=== PATIENT | male | born 1995 ===

== ENCOUNTER 2020-05-22 20:50 | Outpatient (REF) | payer MEDICAID, SELFPAY ==
[2020-05-24 13:50] LABS: COVID-19 RT-PCR UVMMC Result Negative (Negative)
== END 2020-05-22 21:10 ==
LOC: NCHCN 20:50
PROVIDERS: Visit Provider Family Medicine
DX: Z11.59 Encounter for screening for other viral diseases (principal); R52 Pain, unspecified; R05 Cough
CPT/HCPCS: U0003

== ENCOUNTER 2020-06-07 11:18 | Outpatient (REF) | payer MEDICAID, SELFPAY ==
[2020-06-07 14:08] LABS: HCT 40.6 % (40.0-50.0); HGB 12.7 g/dL (13.5-17.5); MCH 26.1 pg (27.0-33.0); MCHC 31.3 % (32.0-36.0); MCV 83.4 fL (80-95); MPV 10.6 fL (8.0-11.0); Platelet Count 266 10^3/uL (130-400); RBC 4.87 10^6/uL (4.36-5.78); RDW 12.6 % (11.8-14.1); RDW-SD 38.5 fL; WBC 5.99 10^3/uL (4.4-10.8)
[2020-06-07 14:38] LABS: Iron 105 ug/dL (65-175)
== END 2020-06-07 11:38 ==
LOC: NCHCN 11:18
PROVIDERS: Visit Provider Physician Assistant
DX: G25.81 Restless legs syndrome (principal)
CPT/HCPCS: 85027; 83540